=== PATIENT | male | born 1960 | race American Indian/Alaskan Native ===

== ENCOUNTER 2017-02-26 12:48 | Emergency (ER) | payer SELFPAY ==
[2017-02-26 14:27] LABS: Basophils % (Auto) 0.9 % (0.0-1.8); Eosinophils % (Auto) 1.5 % (0.0-4.3); Hematocrit 41.8 % (35.5-45.6); Hemoglobin 13.5 gm/dl (11.8-15.2); Mean Corpuscular HGB Conc 32 % (32-34); Mean Corpuscular Volume 73 fl (84-94); Platelet Count 230 K/mm3 (140-440); Red Blood Count 5.75 M/mm3 (3.65-5.03); Red Cell Distribution Width 14.6 % (13.2-15.2); White Blood Count 7.7 K/mm3 (4.5-11.0)
[2017-02-26 14:28] LABS: Mean Corpuscular Hemoglobin 24 pg (28-32)
[2017-02-26 14:29] LABS: Anion Gap 16 mmol/L; BUN/Creatinine Ratio 16; Blood Urea Nitrogen 13 mg/dL (9-20); Calcium 9.2 mg/dL (8.4-10.2); Carbon Dioxide 25 mmol/L (22-30); Chloride 102.2 mmol/L (98-107); Glucose 98 mg/dL (75-100); Sodium 138 mmol/L (137-145)
[2017-02-26 18:59] VITALS: BP 180/99
[2017-02-26] MEDS ORDERED: ZOFRAN IV ONE (20:00)
--- NOTE | 2017-02-26 21:50 | Emergency Department Report ---
HPI - General Chief Complaint: Chest Pain Time Seen by Provider: 02/26/17 21:37 - HPI HPI: Room 18 The patient is a 56-year-old male presented with a chief complaint of chest pain. The patient states for the past 3-4 days he's had dull intermittent substernal chest pain associated with shortness of breath. Patient states she also had a headache and occasional dizziness. Patient denies nausea/vomiting or diaphoresis. The patient states he's never had a stress test and thinks he may have had a cardiac catheterization over 5 years ago Location: Chest Duration: Intermittent 3-4 days Quality: Dull Severity: Currently 0/10 Modifying factors: Unknown Context: [see above] Mode of transportation: Unknown but significant other is at bedside ED Past Medical Hx - Past Medical History Previous Medical History?: Yes Additional medical history: hx of bleeding ulcer. - Surgical History Past Surgical History?: No - Family History Family history: no significant - Social History Smoking Status: Current Every Day Smoker (1/3 pack per day) Substance Use Type: None (denies illicit drug use), Alcohol (frequently) - Medications Home Medications: Home Medications Medication Instructions Recorded Confirmed Last Taken Type No Known Home Medications [No 02/26/17 02/26/17 Unknown History Reported Home Medications] ED Review of Systems ROS: Stated complaint: CHEST PAIN,DIZZY,HEADACHE Other details as noted in HPI Comment: All other systems reviewed and negative Constitutional: denies: chills, fever Eyes: denies: eye pain, eye discharge, vision change ENT: denies: ear pain, throat pain Respiratory: shortness of breath Cardiovascular: chest pain Endocrine: no symptoms reported Gastrointestinal: denies: abdominal pain, nausea, diarrhea Genitourinary: denies: urgency, dysuria Musculoskeletal: denies: back pain, joint swelling, arthralgia Skin: denies: rash, lesions Neurological: headache, other (dizziness) Psychiatric: denies: anxiety, depression Hematological/Lymphatic: denies: easy bleeding, easy bruising Physical Exam - Physical Exam Vital Signs: Vital Signs 02/26/17 02/26/17 02/26/17 13:07 17:20 18:54 Temperature 98.2 F 97.9 F Pulse Rate 74 66 69 Respiratory 16 17 Rate Blood Pressure 150/90 175/97 Blood Pressure [Right] O2 Sat by Pulse 99 100 100 Oximetry 02/26/17 02/26/17 02/26/17 18:55 18:56 18:58 Temperature 97.7 F Pulse Rate 72 73 70 Respiratory 19 16 17 Rate Blood Pressure 180/99 Blood Pressure 180/99 [Right] O2 Sat by Pulse 100 100 100 Oximetry Physical Exam: GENERAL: The patient is well-developed well-nourished male sitting on stretcher not appearing to be in acute distress. [] HEENT: Normocephalic. Atraumatic. Extraocular motions are intact. Patient has moist mucous membranes. NECK: Supple. Trachea midline CHEST/LUNGS: Clear to auscultation. There is no respiratory distress noted. HEART/CARDIOVASCULAR: Regular. There is no tachycardia. There is no gallop rub or murmur. ABDOMEN: Abdomen is soft, nontender. Patient has normal bowel sounds. There is no abdominal distention. SKIN: There is no rash. There is no edema. There is no diaphoresis. NEURO: The patient is awake, alert, and oriented. The patient is cooperative. The patient has normal speech MUSCULOSKELETAL: There is no evidence of acute injury. ED Course Vital Signs 02/26/17 02/26/17 02/26/17 13:07 17:20 18:54 Temperature 98.2 F 97.9 F Pulse Rate 74 66 69 Respiratory 16 17 Rate Blood Pressure 150/90 175/97 Blood Pressure [Right] O2 Sat by Pulse 99 100 100 Oximetry 02/26/17 02/26/17 02/26/17 18:55 18:56 18:58 Temperature 97.7 F Pulse Rate 72 73 70 Respiratory 19 16 17 Rate Blood Pressure 180/99 Blood Pressure 180/99 [Right] O2 Sat by Pulse 100 100 100 Oximetry ED Medical Decision Making - Lab Data Result diagrams: 02/26/17 13:44 02/26/17 13:44 Laboratory Tests 02/26/17 02/26/17 02/26/17 13:44 13:44 16:06 WBC 7.7 RBC 5.75 H Hgb 13.5 Hct 41.8 MCV 73 L MCH 24 L MCHC 32 RDW 14.6 Plt Count 230 Lymph % (Auto) 25.6 [place] % (Auto) 13.4 H Eos % (Auto) 1.5 Baso % (Auto) 0.9 Lymph # 2.0 [place] # 1.0 H Eos # 0.1 Baso # 0.1 Seg Neutrophils % 58.6 Seg Neutrophils # 4.5 Sodium 138 Potassium 5.0 Chloride 102.2 Carbon Dioxide 25 Anion Gap 16 BUN 13 Creatinine 0.8 Estimated GFR > 60 BUN/Creatinine Ratio 16 Glucose 98 Calcium 9.2 Troponin T < 0.010 < 0.010 02/26/17 18:40 WBC RBC Hgb Hct MCV MCH MCHC RDW Plt Count Lymph % (Auto) [place] % (Auto) Eos % (Auto) Baso % (Auto) Lymph # [place] # Eos # Baso # Seg Neutrophils % Seg Neutrophils # Sodium Potassium Chloride Carbon Dioxide Anion Gap BUN Creatinine Estimated GFR BUN/Creatinine Ratio Glucose Calcium Troponin T < 0.010 - EKG Data -: EKG Interpreted by Me EKG shows normal: sinus rhythm Rate: normal - EKG Data When compared to previous EKG there are: previous EKG unavailable Interpretation: nonspecific ST-T wave marla (T-wave inversion in lead 3) - Medical Decision Making I discussed with the patient and family at length my concern for his intermittent chest pain given his risk factors of increased age use. I explained that although his cardiac enzyme is normal and there is no evidence of stimulants EKG does not rule out coronary artery disease/OK/non-STEMI. Patient and family verbalized understanding of increased risk of morbidity and/ or mortality still wishes to leave the Hospital AGAINST MEDICAL ADVICE. - Differential Diagnosis ACS, angina, GERD, pericarditis Critical care attestation.: If time is entered above; I have spent that time in minutes in the direct care of this critically ill patient, excluding procedure time. ED Disposition Clinical Impression: Chest pain Disposition: [id number]-07 LEFT AGAINST MED ADVICE Is pt being admited?: No Does the pt Need Aspirin: Yes Condition: Undetermined Instructions: Chest Pain (ED) Referrals: PRIMARY CARE, [Primary Care Provider] - 3-5 Days Time of Disposition: 21:55 (patient leaving AMA)
[2017-02-26] MEDS ORDERED: ASPIRIN PO ONE (21:55)
== END 2017-02-26 22:05 | disposition left against medical advice (07) ==
LOC: ED 12:48
DX: R07.89 Other chest pain (principal); R06.02 Shortness of breath; R51 Headache; F17.210 Nicotine dependence, cigarettes, uncomplicated
CPT/HCPCS: 36415; 80048; 84484; 85025; 93005; 93010; 96374; 99284